=== PATIENT | male | born 1970 | race African-American/Black ===

== ENCOUNTER 2021-12-19 07:54 | Emergency (ER) | payer OTHER ==
[~2021-12-19] VITALS: Ht 195.6 cm; Wt 168.3 kg
[2021-12-19] MEDS ORDERED: CLONIDINE HCL0.2 MG PO (08:06)
[2021-12-19] MEDS ORDERED: LOVENOX80 MG/0.8 SQ (08:06)
[2021-12-19] MEDS ORDERED: ADULT ASPIRIN R81 MG PO (08:07)
[2021-12-19] MEDS ORDERED: DILTIAZEM 24HR240 M1 PO (08:07)
== END 2021-12-19 09:46 | disposition home or self-care (01) ==
LOC: ED 07:54
DX: M79.89 Other specified soft tissue disorders (principal); Z79.899 Other long term (current) drug therapy; Z79.82 Long term (current) use of aspirin
CPT/HCPCS: 36415; 85025; 85379; 93971; 99284-25

== ENCOUNTER 2023-06-29 08:06 | Emergency (ER) | payer OTHER ==
[~2023-06-29] VITALS: Ht 195.6 cm; Wt 168.3 kg
[~2023-06-29 08:06] MED LIST: ADULT ASPIRIN R81 MG PO; CLONIDINE HCL0.2 MG PO; DILTIAZEM 24HR240 M1 PO; LOVENOX80 MG/0.8 SQ
[2023-06-29] MEDS ORDERED: LIPITOR40 MG PO (08:18)
[2023-06-29 08:40] LABS: BASOPHILS 0.4 % (0-2); HEMOGLOBIN 13.3 g/dL (12.0-18.0); LYMPHOCYTES 27.8 % (24-44); MCH 27.8 (27-36); MCHC 32.5 g/dl (30-36); MCV 85.6 fl (81-99); MONOCYTES 9.8 % (0-12); PLATELET COUNT 291 K/uL (140-440); RBC 4.79 M/ul (4.3-5.7); RDW 13.9 (10.5-15.0)
[2023-06-29 09:00] LABS: ALBUMIN 3.1 g/dL (3.4-5.0); ALBUMIN/GLOBULIN RATIO 0.72 (1.1-2.4); ANION GAP 13.7 (7-21); BILIRUBIN, TOTAL 0.4 ng/dL (0.2-1.0); BUN/CREATININE RATIO 17.11 (6.0-28.6); CALCIUM 9.1 mg/dL (8.5-10.1); CREATININE, SERUM 1.11 mg/dL (0.70-1.30); MAGNESIUM 1.8 mg/dL (1.8-2.4); POTASSIUM 4.7 mmol/L (3.5-5.1); PROTEIN, TOTAL 7.4 g/dL (6.4-8.2)
[2023-06-29 11:00] VITALS: BP 125/81
--- NOTE | 2023-06-30 20:10 | EKG ---
[facility] [address] [facility] [place] [address] Signed Normal sinus rhythm Minimal voltage criteria for LVH, may be normal variant ( R in aVL ) Borderline ECG No previous ECGs available Confirmed by Kia Lyman MD () on 06/30/2023 8:09:57 PM Electronically Signed By: KIA LYMAN MD 06/30/[id number] PATIENT NAME: CRISSYNASRAAHSAN ISAACS Electrocardiogram DATE OF : [birth year] PHYSICIAN: KIA LYMAN MD REPORT #: [id number] REPORT IS CONFIDENTIAL AND NOT TO BE RELEASED WITHOUT AUTHORIZATION
== END 2023-06-29 11:00 | disposition home or self-care (01) ==
LOC: ED 08:06
PROVIDERS: Emergency Medicine
DX: R07.9 Chest pain, unspecified (principal); Z79.899 Other long term (current) drug therapy
CPT/HCPCS: 36415; 71045; 80053; 83735; 84484; 85025; 93005; 93010; 99285-25